=== PATIENT | female | born 1960 | race Caucasian/White ===

== ENCOUNTER → 2023-06-19 10:23 | Outpatient (REF) | payer OTHER, SELFPAY | LOC: HWWDC 10:23 | PROVIDERS: ATTENDING PHYSICIAN Internal Medicine | DX: Z12.31 Encounter for screening mammogram for malignant neoplasm of breast (principal) | CPT/HCPCS: 77063; 77067 ==

== ENCOUNTER → 2024-10-13 10:44 | Outpatient (REF) | payer OTHER, SELFPAY | LOC: HWWDC 10:44 | PROVIDERS: ATTENDING PHYSICIAN Internal Medicine | DX: Z12.31 Encounter for screening mammogram for malignant neoplasm of breast (principal) | CPT/HCPCS: 77063; 77067 ==